=== PATIENT | male | born 1990 | race Caucasian/White ===

== ENCOUNTER 2019-04-22 16:53 | Emergency (ER) | payer SELFPAY ==
[~2019-04-22] VITALS: Ht 177.8 cm; Wt 95.7 kg
[~2019-04-22 16:53] MED LIST: ACETAMINOPHEN 1000 MG/100 ML IV ONE; DEXAMETHASONE SOD PHOS INJ 4 MG/ML VIAL ONE; LIDOCAINE HCL 2% LOCAL INJ 5 ML SDV VIAL INJ ONE; ONDANSETRON HCL INJ 2MG/ML 2ML 2 MG/ML VIAL ONE; PROPOFOL IV EMULSION 10 MG/ML 20 ML VIAL ONE; SEVOFLURANE INHAL SOLN 250 ML PEN BTL ONE; SUCCINYLCHOLINE CHLORIDE 20 MG/ML 10ML VIAL ONE
[2019-04-22] MEDS ORDERED: LIDOCAINE 1% 5ML-MPF INJ ONE (17:30)
[2019-04-22] MEDS ORDERED: TETANUS/DIPHTHERIA TOX ADULT 0.5 ML SYR IM ONE (17:30)
[2019-04-22] MEDS ORDERED: NEOMYCIN/POLYMYX/BACITR OINT 0.9 GM PKT TOP ONE (17:30)
--- NOTE | 2019-04-22 18:06 | Diagnostic Imaging Report ---
EXAMINATION: FINGER LEFT INDICATION: Trauma COMPARISON: None FINDINGS: No acute fracture or dislocation. Alignment appears anatomic. There is soft tissue defect of the third digit, which is wrapped in gauze. IMPRESSION: Soft tissue injury of the third digit without underlying acute osseous injury. Signed by: Adeel Villalta MD on 04/22/2019 6:03 PM
--- NOTE | 2019-04-22 19:20 | NUR ---
DR. EDWARDS AT BEDSIDE TO EVALUATE PT
[2019-04-22] MEDS ORDERED: PIPER-TAZ 3.375 GM 50 ML IV STA (19:28)
[2019-04-22] MEDS ORDERED: CEFAZOLIN SOD 1 GM/NS 50ML 50 ML IV ONE ×2 (19:30→19:32)
[2019-04-22] MEDS ORDERED: MUPIROCIN 2% OINT 22 GM TUBE ONE (19:32)
[2019-04-22] MEDS ORDERED: BUPIVACAINE HCL 0.5% INJ 30 ML VIAL INJ ONE (19:32)
[2019-04-22] MEDS ORDERED: BACITRACIN 50,000 UNIT VIAL ONE (19:32)
[2019-04-22] MEDS ORDERED: MIDAZOLAM HCL 2 MG/2 ML VIAL ONE (19:44)
[2019-04-22] MEDS ORDERED: FENTANYL CITRATE/PF 100MCG/2 ML INJ ONE (19:44)
--- NOTE | 2019-04-22 19:47 | NUR ---
PT TO OR VIA STRETCHER WITH OR STAFF; DEPARTED UNIT WITH NAD NOTED
[2019-04-22 21:25] VITALS: BP 138/74
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
== END 2019-04-22 19:47 | disposition home or self-care (01) ==
LOC: ER 16:53
DX: S61.213A Laceration without foreign body of left middle finger without damage to nail, initial encounter (principal); Z88.8 Allergy status to other drugs, medicaments and biological substances; Z82.49 Family history of ischemic heart disease and other diseases of the circulatory system; Y93.89 Activity, other specified; W26.0XXA Contact with knife, initial encounter
CPT/HCPCS: 20103; 26055; 73140; 90471; 90714; 99284; J0131; J0330; J0690; J1100; J2001; J2250; J2405; J2543; J2704; J3010